=== PATIENT | male | born 1960 | race Hispanic/Latino ===

== ENCOUNTER 2017-03-24 23:30 | Emergency (ER) | payer SELFPAY ==
--- NOTE | 2017-03-25 00:03 | Emergency Department Report ---
ED Altered Mental Status HPI - General Chief Complaint: Altered Mental Status Stated Complaint: FALL Time Seen by Provider: 03/24/17 23:58 Source: family, EMS Mode of arrival: Stretcher Limitations: Altered Mental Status - History of Present Illness Initial Comments: Patient is 56 years old male history of hypertension and chronic alcohol abuse, patient has been drinking alcohol all night. He brought to the ER with altered mental status and possible fall with head injury. By the time patient arrived to the ER he is alert oriented 3. MD Complaint: altered mental status, intoxication -: This evening Severity: moderate Context: alcohol abuse Associated Symptoms: denies other symptoms - Related Data Home Medications Medication Instructions Recorded Confirmed Last Taken Unobtainable 03/24/17 03/24/17 Unknown Allergies Allergy/AdvReac Type Severity Reaction Status Date / Time No Known Allergies Allergy Unverified 03/24/17 23:48 ED Review of Systems ROS: Stated complaint: FALL Other details as noted in HPI Comment: All other systems reviewed and negative Constitutional: denies: chills, fever ENT: denies: ear pain Cardiovascular: denies: chest pain, palpitations, dyspnea on exertion Gastrointestinal: denies: abdominal pain, nausea, vomiting, diarrhea, constipation, hematemesis Genitourinary: denies: urgency, dysuria, frequency, hematuria Skin: denies: rash, lesions Neurological: denies: headache, weakness, numbness, paresthesias ED Past Medical Hx - Past Medical History Hx Hypertension: Yes Hx Diabetes: Yes - Social History Smoking Status: Never Smoker Substance Use Type: None - Medications Home Medications: Home Medications Medication Instructions Recorded Confirmed Last Taken Type Unobtainable 03/24/17 03/24/17 Unknown History ED Physical Exam - General Limitations: Altered Mental Status General appearance: alert, in no apparent distress - Head Head exam: Present: atraumatic, normocephalic, normal inspection - Eye Eye exam: Present: normal appearance, PERRL - ENT ENT exam: Present: normal exam, normal orophraynx, mucous membranes moist - Neck Neck exam: Present: normal inspection, full ROM. Absent: tenderness, meningismus - Respiratory Respiratory exam: Present: normal lung sounds bilaterally. Absent: respiratory distress, wheezes, rales, rhonchi, stridor, chest wall tenderness, accessory muscle use, decreased breath sounds, prolonged expiratory - Cardiovascular Cardiovascular Exam: Present: regular rate, normal rhythm, normal heart sounds - GI/Abdominal GI/Abdominal exam: Present: soft, normal bowel sounds. Absent: distended, tenderness, guarding, rebound, rigid, organomegaly, mass, bruit, pulsatile mass , hernia - Extremities Exam Extremities exam: Present: normal inspection, full ROM, normal capillary refill - Back Exam Back exam: Present: normal inspection. Absent: full ROM, tenderness, CVA tenderness (R), CVA tenderness (L) - Neurological Exam Neurological exam: Present: alert, oriented X3, CN II-XII intact, normal gait - Skin Skin exam: Present: warm, intact, normal color. Absent: cyanosis, diaphoretic ED Course Vital Signs 03/24/17 03/24/17 23:34 23:49 Temperature 97.7 F Pulse Rate 86 Respiratory 18 16 Rate Blood Pressure 170/92 O2 Sat by Pulse 88 100 Oximetry - Lab Data Result diagrams: 03/24/17 23:49 03/24/17 23:49 Lab Results 03/24/17 03/24/17 03/24/17 Range/Units 23:49 23:49 23:49 WBC 8.2 (4.5-11.0) K/mm3 RBC 5.00 (3.65-5.03) M/mm3 Hgb 14.9 (11.8-15.2) gm/dl Hct 46.0 H (35.5-45.6) % MCV 92 (84-94) fl MCH 30 (28-32) pg MCHC 32 (32-34) % RDW 13.2 (13.2-15.2) % Plt Count 215 (140-440) K/mm3 Seg Neutrophils % Greens Or Grounds Superintendent Sodium 140 (137-145) mmol/L Potassium 3.4 L (3.6-5.0) mmol/L Chloride 98.5 (98-107) mmol/L Carbon Dioxide 23 (22-30) mmol/L Anion Gap 22 mmol/L BUN 11 (9-20) mg/dL Creatinine 0.9 (0.8-1.5) mg/dL Estimated GFR > 60 ml/min BUN/Creatinine Ratio 12 % Glucose 146 H (75-100) mg/dL Calcium 8.8 (8.4-10.2) mg/dL Total Bilirubin 0.20 (0.1-1.2) mg/dL AST 32 (5-40) units/L ALT 29 (7-56) units/L Alkaline Phosphatase 76 (35-129) units/L Total Protein 7.7 (6.3-8.2) g/dL Albumin 4.1 (3.9-5) g/dL Albumin/Globulin Ratio 1.1 % TSH 1.080 (0.270-4.200) mlU/mL Urine Color (Yellow) Urine Turbidity (Clear) Urine pH (5.0-7.0) Ur Specific [place] (1.003-1.030) Urine Protein (Negative) mg/dL Urine Glucose (UA) (Negative) mg/dL Urine Ketones (Negative) mg/dL Urine Blood (Negative) Urine Nitrite (Negative) Urine Bilirubin (Negative) Urine Urobilinogen (<2.0) mg/dL Ur Leukocyte Esterase (Negative) Urine WBC (Auto) (0.0-6.0) /HPF Urine RBC (Auto) (0.0-6.0) /HPF Urine Bacteria (Auto) (Negative) /HPF Hyaline Casts /LPF Urine Opiates Screen Urine Methadone Screen Ur Barbiturates Screen Ur Phencyclidine Scrn Ur Amphetamines Screen U Benzodiazepines Scrn Urine Cocaine Screen U Marijuana (THC) Screen Drugs of Abuse Note Plasma/Serum Alcohol (0-0.07) gm% 03/24/17 03/25/17 03/25/17 Range/Units 23:49 01:01 01:01 WBC (4.5-11.0) K/mm3 RBC (3.65-5.03) M/mm3 Hgb (11.8-15.2) gm/dl Hct (35.5-45.6) % MCV (84-94) fl MCH (28-32) pg MCHC (32-34) % RDW (13.2-15.2) % Plt Count (140-440) K/mm3 Seg Neutrophils % Sodium (137-145) mmol/L Potassium (3.6-5.0) mmol/L Chloride (98-107) mmol/L Carbon Dioxide (22-30) mmol/L Anion Gap mmol/L BUN (9-20) mg/dL Creatinine (0.8-1.5) mg/dL Estimated GFR ml/min BUN/Creatinine Ratio % Glucose (75-100) mg/dL Calcium (8.4-10.2) mg/dL Total Bilirubin (0.1-1.2) mg/dL AST (5-40) units/L ALT (7-56) units/L Alkaline Phosphatase (35-129) units/L Total Protein (6.3-8.2) g/dL Albumin (3.9-5) g/dL Albumin/Globulin Ratio % TSH (0.270-4.200) mlU/mL Urine Color Straw (Yellow) Urine Turbidity Clear (Clear) Urine pH 6.0 (5.0-7.0) Ur Specific [place] 1.009 (1.003-1.030) Urine Protein <15 mg/dl (Negative) mg/dL Urine Glucose (UA) Neg (Negative) mg/dL Urine Ketones Neg (Negative) mg/dL Urine Blood Neg (Negative) Urine Nitrite Neg (Negative) Urine Bilirubin Neg (Negative) Urine Urobilinogen < 2.0 (<2.0) mg/dL Ur Leukocyte Esterase Sm (Negative) Urine WBC (Auto) 4.0 (0.0-6.0) /HPF Urine RBC (Auto) 3.0 (0.0-6.0) /HPF Urine Bacteria (Auto) 1+ (Negative) /HPF Hyaline Casts 1 /LPF Urine Opiates Screen Presumptive negative Urine Methadone Screen Presumptive negative Ur Barbiturates Screen Presumptive negative Ur Phencyclidine Scrn Presumptive negative Ur Amphetamines Screen Presumptive negative U Benzodiazepines Scrn Presumptive negative Urine Cocaine Screen Presumptive negative U Marijuana (THC) Screen Presumptive positive Drugs of Abuse Note Disclamer Plasma/Serum Alcohol 0.32 H (0-0.07) gm% - EKG Data -: EKG Interpreted by Sc EKG shows normal: sinus rhythm Rate: normal Interpretation: no acute changes - Radiology Data Radiology results: report reviewed Referring Physician: JACQUELIN DE LA GARZA Patient Name: LIZETT LOPEZ Date of : 1960 Sex: Male Report Date: 2017-03-24 Report Status: Finalized Findings [facility] [address] [place] [address] Cat Scan Report Signed Patient: LIZETT LOPEZ MR#: [id number] : 1960 Acct:[id number] Age/Sex: 56 / M ADM Date: 03/24/17 Loc: ED Attending Dr: Ordering Physician: JACQUELIN DE LA GARZA Date of Service: 03/25/17 Procedure(s): CT head/brain wo con Accession Number(s): [id number] cc: JACQUELIN DE LA GARZA FINAL REPORT PROCEDURE: CT HEAD/BRAIN WO CON TECHNIQUE: Computerized tomography of the head was performed without contrast material. HISTORY: AMS COMPARISON: No prior studies are available for comparison. FINDINGS: Skull and scalp: Normal. Paranasal sinuses: Normal. Ventricles and subarachnoid spaces: Normal. Cerebrum: No evidence of hemorrhage, acute infarction or mass . Cerebellum and brainstem: No evidence of hemorrhage, acute infarction or mass. Vasculature: Normal. Comments: None. IMPRESSION: There is no evidence of an acute intracranial process. Transcribed By: [facility] Dictated By: LYNNETTE CAMPBELL MD Electronically Authenticated By: LYNNETTE CAMPBELL MD Signed Date/Time: 03/24/172153 DD/ 53 TD/TT: 03/24/172153 - Medical Decision Making Patient stated that he is feeling much better. He is alert oriented 3, his alcohol level is 0.3, his daughter and his niece at bedside and they wanted taking him, so the sign up for him to be discharged with them. Critical care attestation.: If time is entered above; I have spent that time in minutes in the direct care of this critically ill patient, excluding procedure time. ED Disposition Clinical Impression: Head injury, Alcohol intoxication Disposition: DC-01 TO HOME OR SELFCARE Is pt being admited?: No Condition: Stable Instructions: Minor Head Injury (ED), Alcohol Intoxication (ED) Referrals: PRIMARY CARE, [Referring] - 3-5 Days
[2017-03-25 00:18] LABS: Hemoglobin 14.9 gm/dl (11.8-15.2); Mean Corpuscular HGB Conc 32 % (32-34); Mean Corpuscular Hemoglobin 30 pg (28-32); Mean Corpuscular Volume 92 fl (84-94); Platelet Count 215 K/mm3 (140-440); Red Cell Distribution Width 13.2 % (13.2-15.2)
[2017-03-25 00:48] LABS: Alanine Aminotransferase 29 units/L (7-56); Albumin 4.1 g/dL (3.9-5); BUN/Creatinine Ratio 12; Blood Urea Nitrogen 11 mg/dL (9-20); Calcium 8.8 mg/dL (8.4-10.2); Hemolysis Index 49
[2017-03-25 01:54] LABS: Bacteria,Urine 1+ /HPF (Negative); Bilirubin,Urine NEG (Negative); Blood,Urine NEG (Negative); Color,Urine Straw (Yellow); Hyaline Casts,Urine 1 /LPF; Nitrite,Urine NEG (Negative); Protein,Urine <15 mg/dL mg/dL (Negative); Urobilinogen,Urine < 2.0 mg/dL (<2.0)
--- NOTE | 2017-03-25 01:56 | Cat Scan Report ---
FINAL REPORT PROCEDURE: CT HEAD/BRAIN WO CON TECHNIQUE: Computerized tomography of the head was performed without contrast material. HISTORY: AMS COMPARISON: No prior studies are available for comparison. FINDINGS: Skull and scalp: Normal. Paranasal sinuses: Normal. Ventricles and subarachnoid spaces: Normal. Cerebrum: No evidence of hemorrhage, acute infarction or mass . Cerebellum and brainstem: No evidence of hemorrhage, acute infarction or mass. Vasculature: Normal. Comments: None. IMPRESSION: There is no evidence of an acute intracranial process.
[2017-03-25 01:59] LABS: Amphetamine Screen,Urine PRESUMPTIVE NEGATIVE; Benzodiazepines Screen,Urine PRESUMPTIVE NEGATIVE; Cocaine Screen,Urine PRESUMPTIVE NEGATIVE; Methadone Screen,Urine PRESUMPTIVE NEGATIVE; Opiate Screen,Urine PRESUMPTIVE NEGATIVE
[2017-03-25 02:46] LABS: Cannabinoid Screen,Urine PRESUMPTIVE POSITIVE
[2017-03-25 03:58] LABS: Basophils % (Manual) 0 % (0.0-1.8); Total Cells Counted 100
[2017-03-25 03:59] LABS: Platelet Estimate Consistent w Auto
[2017-03-25 04:48] VITALS: BP 131/78
== END 2017-03-25 04:00 | disposition home or self-care (01) ==
LOC: ED 23:30
DX: F10.129 Alcohol abuse with intoxication, unspecified (principal); S09.90XA Unspecified injury of head, initial encounter; I10 Essential (primary) hypertension; E11.9 Type 2 diabetes mellitus without complications; W18.30XA Fall on same level, unspecified, initial encounter; Y93.89 Activity, other specified; Y92.89 Other specified places as the place of occurrence of the external cause; Y99.8 Other external cause status
CPT/HCPCS: 36415; 70450; 80053; 80307; 81001; 84443; 85007; 85025; 93005; 93010; 99285; G0480; 80320